=== PATIENT | male | born 1965 | race Caucasian/White ===

== ENCOUNTER 2017-05-13 09:05 | Outpatient (CLI) | payer BC ==
--- NOTE | 2017-05-13 12:55 | CT ---
CT ABDOMEN AND PELVIS WITH IV AND ORAL CONTRAST: HISTORY: Lower abdomen pain. FINDINGS: The lung bases are clear. The liver, spleen, kidneys, adrenal glands, and pancreas have a normal CT appearance. No enlarged lymph node or free fluid is apparent. The urinary bladder is unremarkable. The appendix is not inflamed. There are degenerative changes of the lumbar spine. Mild diverticula arise from the colon without adjacent inflammation. IMPRESSION: Mild diverticulosis. No evidence of diverticulitis. POS: [facility]
[2017-05-13] MEDS ORDERED: Iopamidol 370 76% 100 ML VIAL ONE (16:41)
== END 2017-05-13 09:06 | disposition home or self-care (01) ==
LOC: CT 09:05
PROVIDERS: ATTEND Family Medicine
DX: R10.2 Pelvic and perineal pain (principal); K57.30 Diverticulosis of large intestine without perforation or abscess without bleeding
CPT/HCPCS: 74177

== ENCOUNTER 2017-09-20 15:41 | Outpatient (CLI) | payer BC ==
--- NOTE | 2017-09-20 11:45 | HP ---
HISTORY OF PRESENT ILLNESS: Marty Montelongo is a 52-year-old male patient, who has had pain in his l eft groin for several years. 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 He does this repetitive activity throu ghout the day. He has discomfort mostly in his left groin. He has undergone a CAT scan of the abdom en and pelvis that did not show a hernia. 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 He continues to have discomfort, and he changed primary care physician, and Dr. Winkler with some p ersistence, according to the patient, appreciated a left inguinal hernia. Plan is for robotic repair of his left inguinal hernia, and if a right inguinal hernia is present plan repair of that using mes h. There is no clinical evidence of right inguinal hernia. His exam is difficult in that he is sens itive on both sides and exam is difficult due to anatomic consideration (237 pounds, 68 inches). ALLERGIES: CHLORTHALIDONE, adverse reaction. ALCOHOL/TOBACCO: None. PAST MEDICAL HISTORY: Hypertension, elevated cholesterol, history of Sutton's palsy. SURGICAL HISTORY: Foot surgery, wisdom teeth. REVIEW OF SYSTEMS: Ten-point noncontributory. In 2012, is when he had a reaction to the chlorthalid one, he underwent echocardiogram and cardiac stress test in the hospital that was normal. He has bee n advised to have a colonoscopy, but has not had one today. PHYSICAL EXAMINATION: VITAL SIGNS: 111/68, 57, 98.6 degrees, 237 pounds, 68.9 inches. LUNGS: Clear to auscultation. CARDIAC: Regular rate and rhythm without murmur, rub, or gallop. ABDOMEN: Soft, obese. EXTREMITIES: Unremarkable. GENITOURINARY: Testicles normal. On standing evaluation, he is appreciated to have a left inguinal hernia. I cannot appreciate a right inguinal hernia. ASSESSMENT: Left inguinal hernia. PLAN: Repair robotically using mesh and repair right inguinal hernia found in this robotic endoscopi dale. The patient understands the risks of infection, bleeding, reoperation, chronic pain, recurren ce of hernia, and consents.
[2017-09-20 17:15] LABS: #Eosinphils 0.1 thou/uL (0.0-0.7); #Lymphocytes 2.5 thou/uL (1.20-3.40); #Monocytes 0.7 thou/uL (0.11-0.59); #Neutrophils 5.6 thou/uL (1.40-6.50); %Basophils 0.5 % (0.0-1.0); %Eosinophils 1.2 % (0.0-10.0); %Monocytes 8.2 % (0.0-10.0); %Neutrophils 62.1 % (42.0-75.0); Hemoglobin 15.6 g/dL (14.0-18.0); Mean Corpuscular HGB CONC 33.6 g/dL (32.0-36.0); Mean Corpuscular Hemoglobin 29.8 pg (27.0-31.0); Mean Corpuscular Volume 88.9 fl (80.0-94.0); Platelet Count 316 thou/uL (130-400); RBC Distribution Width 12.7 % (11.5-14.5); Red Blood Cell (RBC) Count 5.23 mill/uL (4.70-6.10)
[2017-09-20 17:26] LABS: Anion Gap 12 mmol/L (10-20); BUN (Urea Nitrogen) 26 mg/dL (8.4-25.7); Calc. Creatinine Clearance 0 mL/min (70-130); Carbon Dioxide 25 mmol/L (22-29); Chloride 107 mmol/L (98-107); Estimated GFR-MDRD 42; Glucose 93 mg/dL (70-105); Potassium 4.2 mmol/L (3.5-5.1); Sodium 140 mmol/L (136-145)
== END 2017-09-20 15:42 | disposition home or self-care (01) ==
LOC: LABBT 15:41
PROVIDERS: ATTEND Specialist
DX: Z01.818 Encounter for other preprocedural examination (principal); K40.90 Unilateral inguinal hernia, without obstruction or gangrene, not specified as recurrent
CPT/HCPCS: 80048; 85025; 93005; 93010

== ENCOUNTER 2017-09-30 09:33 | Day surgery (SDC) | payer BC ==
--- NOTE | 2017-09-20 11:45 | HP ---
HISTORY OF PRESENT ILLNESS: Marty Montelongo is a 52-year-old male patient, who has had pain in his l eft groin for several years. 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 He does this repetitive activity throu ghout the day. He has discomfort mostly in his left groin. He has undergone a CAT scan of the abdom en and pelvis that did not show a hernia. 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 He continues to have discomfort, and he changed primary care physician, and Dr. Winkler with some p ersistence, according to the patient, appreciated a left inguinal hernia. Plan is for robotic repair of his left inguinal hernia, and if a right inguinal hernia is present plan repair of that using mes h. There is no clinical evidence of right inguinal hernia. His exam is difficult in that he is sens itive on both sides and exam is difficult due to anatomic consideration (237 pounds, 68 inches). ALLERGIES: CHLORTHALIDONE, adverse reaction. ALCOHOL/TOBACCO: None. PAST MEDICAL HISTORY: Hypertension, elevated cholesterol, history of Sutton's palsy. SURGICAL HISTORY: Foot surgery, wisdom teeth. REVIEW OF SYSTEMS: Ten-point noncontributory. In 2012, is when he had a reaction to the chlorthalid one, he underwent echocardiogram and cardiac stress test in the hospital that was normal. He has bee n advised to have a colonoscopy, but has not had one today. PHYSICAL EXAMINATION: VITAL SIGNS: 111/68, 57, 98.6 degrees, 237 pounds, 68.9 inches. LUNGS: Clear to auscultation. CARDIAC: Regular rate and rhythm without murmur, rub, or gallop. ABDOMEN: Soft, obese. EXTREMITIES: Unremarkable. GENITOURINARY: Testicles normal. On standing evaluation, he is appreciated to have a left inguinal hernia. I cannot appreciate a right inguinal hernia. ASSESSMENT: Left inguinal hernia. PLAN: Repair robotically using mesh and repair right inguinal hernia found in this robotic endoscopi dale. The patient understands the risks of infection, bleeding, reoperation, chronic pain, recurren ce of hernia, and consents.
[2017-09-20 16:11] VITALS: BMI 33.0
[2017-09-30] MEDS ORDERED: CEFAZOLIN/Water 2 GM/20 ML SYRINGE ONE (10:37)
[2017-09-30] MEDS ORDERED: Ketorolac Tromethamine 30 MG/ML VIAL ONE (10:38)
[2017-09-30] MEDS ORDERED: Scopolamine 1.5 mg/72 hour Patch ONE (10:39)
[2017-09-30] MEDS ORDERED: Bupivacaine HCl 0.5%/Epinephrine 1:200,000/PF 30 ml Vial ONE (11:47)
[2017-09-30] MEDS ORDERED: Fentanyl 250 MCG/5 ML VIAL ONE (11:47)
[2017-09-30] MEDS ORDERED: Midazolam HCl 2 mg/2 ml Vial ONE (12:02)
--- NOTE | 2017-09-30 17:46 | OP ---
DATE OF PROCEDURE: 09/30/2017 PREOPERATIVE DIAGNOSIS: Left inguinal hernia, indirect. POSTOPERATIVE DIAGNOSIS: Bilateral inguinal hernias, indirect. SURGEON: Dr. Marty New ANESTHESIA: General. Local 0.5% Marcaine with epinephrine 30 mL volume total used. PROCEDURE: Robotic endoscopic bilateral indirect inguinal hernia repair using Bard 3Dmax mesh. DESCRIPTION OF PROCEDURE: The patient was taken to the operating room where under general anesthesia , abdomen was clipped of hair, prepared with ChloraPrep, draped in routine fashion. Local anesthetic infiltrated into skin and subcutaneous tissue about the operative site. Supraumbilical incision mad e midline and pneumoperitoneum to 15 mmHg obtained with the Veress needle, replacing it with an 11 po rt, video laparoscope was inserted, placed in the trocar catheters 8 mm under direct visualization. Incision was made in the left upper abdomen lateral and mid clavicular line and right upper abdomen l ateral to midclavicular line inserting the ports and docking the robot in routine fashion. Robotic e ndoscopic inspection made in the pelvis and a larger indirect inguinal hernia was appreciated. Small er direct left. Dissection was carried out by scoring the peritoneum about 6 cm superiorly at the le duarte of the anterior superior iliac spine making a peritoneal flap initially on the left than on the r ight. Dissection on both sides begun laterally dissecting this plane out laterally, dissecting the p eritoneal flap and then medially to the midline, identifying the pubis on both sides. On the right s cookie, indirect hernia sac dissected free from the cord structures. Lipoma of the cord dissected free, keeping the cord structures free of harm. Epigastric artery was identified and kept free of harm. The 3Dmax Bard mesh was then inserted and properly aligned and mesh secured to the pubis with a 2-0 V icryl suture and then to the abdominal wall fascia with 3-0 Vicryl suture just lateral to the epigast golden vessels. Mesh had good orientation in coverage. The mesh on the left side was likewise approxim ated and placed in good position. The peritoneum on the right and then the left closed with continuo us suture of a 3-0 V-Loc. Once this was completed and backed, this has performed to lock it. Hernia repair is noted to be intact. Pneumoperitoneum reduced after GraNee needle used to place an 0 Vicry l approximate the midline fascia at the 11 port site. Pneumoperitoneum reduced. All instruments rem faustino and all skin incisions approximated with interrupted subdermal 4-0 Monocryl and DermaGlue carrie jones
[2017-09-30] MEDS ORDERED: Ondansetron HCl/PF 4 MG/2 ML Vial ONE (18:07)
[2017-09-30] MEDS ORDERED: Lidocaine 1% PF 5 ML VIAL ONE (18:07)
[2017-09-30] MEDS ORDERED: Glycopyrrolate 0.2 MG/ML 5 ML SYRINGE ONE (18:07)
[2017-09-30] MEDS ORDERED: ePHEDrine/0.9% NaCl/PF SYRINGE 50 mg/10 ml ONE (18:07)
[2017-09-30] MEDS ORDERED: PROPOFOL 200 MG/20 ML VIAL ONE (18:07)
[2017-09-30] MEDS ORDERED: Dexamethasone 20 MG/5 ML VIAL ONE (18:07)
[2017-09-30] MEDS ORDERED: PHENYLEPHRINE-NS 100 MCG/ML 10 ML SYRINGE ONE (18:07)
== END 2017-09-30 16:10 | disposition home or self-care (01) ==
LOC: SDC 09:33
PROVIDERS: ATTEND Specialist
PROC: 0YUA4JZ Supplement Bilateral Inguinal Region with Synthetic Substitute, Percutaneous Endoscopic Approach (ICD-10-PCS; principal; 2017-09-30)
DX: K40.20 Bilateral inguinal hernia, without obstruction or gangrene, not specified as recurrent (principal); D17.6 Benign lipomatous neoplasm of spermatic cord; I10 Essential (primary) hypertension; E78.00 Pure hypercholesterolemia, unspecified; Z79.82 Long term (current) use of aspirin; Z79.899 Other long term (current) drug therapy; Z88.8 Allergy status to other drugs, medicaments and biological substances
CPT/HCPCS: J0131; J0670; J1100; J1885; J2001; J2250; J2405; J2704; J3010

== ENCOUNTER 2022-03-15 10:00 | Outpatient (CLI) | payer BC | END 2022-03-15 10:01 | disposition home or self-care (01) | LOC: BICRAD 10:00 | PROVIDERS: ATTEND Family Medicine | DX: M25.552 Pain in left hip (principal) ==